=== PATIENT | female | born 1995 | race American Indian/Alaskan Native ===

== ENCOUNTER 2018-10-24 14:51 | Outpatient (CLI) | payer OTHER ==
[2018-10-24] MEDS ORDERED: PRENATAL CAPLE1 EAC1 PO (16:43)
== END 2018-10-25 11:26 | disposition home or self-care (01) ==
LOC: OBS/DEL 14:51
DX: O98.812 Other maternal infectious and parasitic diseases complicating pregnancy, second trimester (principal); B37.3 Candidiasis of vulva and vagina; Z34.02 Encounter for supervision of normal first pregnancy, second trimester

== ENCOUNTER 2019-01-25 16:41 | Inpatient (IN) | payer OTHER ==
[~2019-01-25] VITALS: Ht 154.9 cm; Wt 76.2 kg
[~2019-01-25 16:41] MED LIST: PRENATAL CAPLE1 EAC1 PO
== END 2019-01-28 15:57 | DRG 807 ==
LOC: OBS/DEL 16:41 → LDR 01-26 06:26 → OB/GYN 01-26 06:26
PROVIDERS: ADMIT Obstetrics & Gynecology
PROC: 10E0XZZ Delivery of Products of Conception, External Approach (ICD-10-PCS; principal; 2019-01-26)
PROC: 4A1HXCZ Monitoring of Products of Conception, Cardiac Rate, External Approach (ICD-10-PCS; 2019-01-26)
DX: O80 Encounter for full-term uncomplicated delivery (principal); Z37.0 Single live birth; Z3A.38 38 weeks gestation of pregnancy

== ENCOUNTER 2021-01-18 13:22 | Inpatient (IN) | payer OTHER ==
[~2021-01-18] VITALS: Ht 154.9 cm; Wt 77.1 kg
== END 2021-01-20 17:07 | disposition home or self-care (01) | DRG 807 ==
LOC: OB/GYN 13:22 → LDR 13:22 → OB/GYN 23:15
PROVIDERS: ADMIT Obstetrics & Gynecology; ATTEND Obstetrics & Gynecology
PROC: 10E0XZZ Delivery of Products of Conception, External Approach (ICD-10-PCS; principal; 2021-01-18)
PROC: 10907ZC Drainage of Amniotic Fluid, Therapeutic from Products of Conception, Via Natural or Artificial Opening (ICD-10-PCS; 2021-01-18)
PROC: 4A1HXFZ Monitoring of Products of Conception, Cardiac Rhythm, External Approach (ICD-10-PCS; 2021-01-18)
DX: O80 Encounter for full-term uncomplicated delivery (principal); Z37.0 Single live birth; Z3A.39 39 weeks gestation of pregnancy

== ENCOUNTER 2022-06-28 12:04 | Outpatient (CLI) | payer OTHER | END 2022-06-28 13:15 | disposition home or self-care (01) | LOC: PRENATAL 12:04 | PROVIDERS: ATTEND Obstetrics & Gynecology Maternal & Fetal Medicine | DX: O35.9XX0 Maternal care for (suspected) fetal abnormality and damage, unspecified, not applicable or unspecified (principal); O35.3XX0 Maternal care for (suspected) damage to fetus from viral disease in mother, not applicable or unspecified; Z3A.20 20 weeks gestation of pregnancy ==

== ENCOUNTER 2022-09-19 14:01 | Outpatient (CLI) | payer OTHER | END 2022-09-19 15:01 | disposition home or self-care (01) | LOC: PRENATAL 14:01 | PROVIDERS: ATTEND Obstetrics & Gynecology Maternal & Fetal Medicine | DX: O26.849 Uterine size-date discrepancy, unspecified trimester (principal); O35.9XX0 Maternal care for (suspected) fetal abnormality and damage, unspecified, not applicable or unspecified; O36.8199 Decreased fetal movements, unspecified trimester, other fetus; Z3A.31 31 weeks gestation of pregnancy ==

== ENCOUNTER 2022-11-14 08:31 | Inpatient (IN) | payer OTHER ==
[~2022-11-14] VITALS: Ht 154.9 cm; Wt 83.0 kg
[2022-11-14] MEDS ORDERED: PRENATAL TABLE1 EAC4 PO (13:45)
[2022-11-14] MEDS ORDERED: IRON18 MG PO (13:45)
[2022-11-14] MEDS ORDERED: PROFERRIN-FORT1 EACH (15:16)
== END 2022-11-16 14:20 | disposition home or self-care (01) | DRG 807 ==
LOC: LDR 08:31 → OB/GYN 21:29
PROVIDERS: ADMIT Obstetrics & Gynecology; ATTEND Obstetrics & Gynecology
PROC: 10E0XZZ Delivery of Products of Conception, External Approach (ICD-10-PCS; principal; 2022-11-14)
PROC: 4A1HXCZ Monitoring of Products of Conception, Cardiac Rate, External Approach (ICD-10-PCS; 2022-11-14)
DX: O80 Encounter for full-term uncomplicated delivery (principal); Z37.0 Single live birth; Z3A.39 39 weeks gestation of pregnancy; Z20.822 Contact with and (suspected) exposure to COVID-19